=== PATIENT | female | born 1960 | race Caucasian/White ===

== ENCOUNTER 2016-12-17 20:06 | Emergency (ER) | payer BC | END 2016-12-17 21:11 | disposition left against medical advice (07) | LOC: DL.ED 20:06 | DX: Z53.21 Procedure and treatment not carried out due to patient leaving prior to being seen by health care provider (principal) ==

== ENCOUNTER 2020-11-26 20:01 | Emergency (ER) | payer BC ==
[2020-11-26] MEDS ORDERED: GI Cocktail Oral Solution 30 ML PO ONE (20:29)
[2020-11-26] MEDS ORDERED: Sodium Chloride 0.9% 10 ML Syringe FLUSH PRN (20:29)
--- NOTE | 2020-11-26 20:30 | PCM.EKG ---
#1 Interpretation EKG Date: 11/26/20 Time: 20:26 Rhythm: NSR Rate (Beats/Min): 57 [place]: Normal P-Wave: Present QRS: Normal ST-T: Normal QT: Normal Comparison: NA - No Prior EKG
[2020-11-26 20:38] VITALS: BP 143/77; PULSE 57
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
[2020-11-26 21:07] LABS: ANION GAP 14.8 mEq/L (7-13); CHLORIDE,CL 106 mmol/L (98-107); SODIUM,NA 143 mmol/L (136-145)
--- NOTE | 2020-11-26 21:54 | CR ---
PROCEDURE INFORMATION: Exam: XR Chest Exam date and time: 11/26/2020 9:12 PM Age: 60 years old Clinical indication: Other: Chest pain; Additional info: Cp TECHNIQUE: Imaging protocol: XR of the chest. Views: 2 views. COMPARISON: CR CHEST PA/LAT 05/13/2009 2:41 PM FINDINGS: Airway: Patent Lungs: COPD/emphysema is appreciated. No acute interstitial or airspace disease. Pleural spaces: Stable blunting of the left costophrenic angle since the reference examination. This is most in favor with chronic scarring/atelectasis. Right costophrenic angle is clear. There is no evidence of pneumothorax. Heart/Mediastinum: Unremarkable. No cardiomegaly. Vasculature: Calcified aortic knob. Bones/joints: No acute skeletal abnormality or aggressive osseous lesion. IMPRESSION: Negative for acute thoracic pathology.
== END 2020-11-26 22:31 | disposition home or self-care (01) ==
LOC: DL.ED 20:01
DX: R07.9 Chest pain, unspecified (principal); K21.9 Gastro-esophageal reflux disease without esophagitis; I10 Essential (primary) hypertension; Z88.5 Allergy status to narcotic agent; Z79.82 Long term (current) use of aspirin; Z79.899 Other long term (current) drug therapy
CPT/HCPCS: 36415; 71046; 80053; 84484; 85025; 93005; 99285; A9270